=== PATIENT | female | born 1990 | race Caucasian/White ===

== ENCOUNTER → 2018-03-18 11:40 | Outpatient (CLI) | payer BC, SELFPAY ==
[2018-03-18 14:32] LABS: Thyroid Stim Hormone (TSH) 8.98 uIU/mL (0.358-3.74)
== END ==
PROVIDERS: Family Provider Family Medicine; PCP Family Medicine; Visit Provider Family Medicine
DX: E03.9 Hypothyroidism, unspecified (principal)
CPT/HCPCS: 36415; 84443

== ENCOUNTER → 2018-08-18 14:28 | Outpatient (CLI) | payer BC, SELFPAY ==
--- NOTE | 2018-08-18 14:33 | US_ITS ---
STUDY: THYROID ULTRASOUND REASON FOR EXAM: Female, 28 years old. Thyromegaly. TECHNIQUE: Ultrasound evaluation of the thyroid was performed with real-time and static cazares-scale imaging. COMPARISON: None. FINDINGS: RIGHT LOBE: The right lobe of the thyroid gland measures 6.0 x 2.3 x 2.0 cm. There is a heterogeneous echotexture. There is a 5 x 5 x 4 mm possible solid nodule in the upper pole. There is hypervascularity throughout the right lobe. LEFT LOBE: The left lobe of the thyroid gland measures 5.5 x 1.8 x 1.6 cm. There is a heterogeneous echotexture. There are no demonstrated solid, cystic or complex lesions. There is hypervascularity throughout the left lobe. ISTHMUS: The isthmus measures 6 mm. The regional lymph nodes are normal. US/Thyroid IMPRESSION: Enlarged, heterogeneous, hypervascular thyroid, suggesting thyroiditis. Possible 5 mm nodule in the upper pole of the right lobe. Electronically Signed: Hector Morfin MD at 18:58 EST , Service support ,
--- OUTSIDE RECORDS SUMMARY | 2018-10-04 11:50 | XMS RPT_ITS | Continuity of Care Document ---
:1990 Author Organization [facility] Address [address] [place] [address] Phone Care Team Providers Name Role Phone Veronique Mckinney DO Unavailable PHILOMENA Morse Unavailable Unavailable Unavailable Unavailable Problems Name Dates Details Adult hypothyroidism (E03.9, 244.9) Status: Active Anxiety and depression (F41.9, 300.00) Comments: sees [facility] on [address] Status: Active BMI 29.0-29.9,adult (Z68.29, V85.25) Status: Active Deliveries (Parity) Comments: 1. Status: Active Encounter for screening mammogram for breast cancer (Renamed from Encounter for screening mammogram for malignant neoplasm of breast) (Z12.31, V76.12) Status: Active Family history of breast cancer in female (Z80.3, V16.3) Status: Active Influenza vaccination declined (Renamed from Refused influenza vaccine) (Z28.21, V64.06) Status: Active Non-smoker (Z78.9, V49.89) Status: Active Panic attack (F41.0, 300.01) Status: Active Pregnancies () Comments: 1. Status: Active Thyromegaly (E01.0, 240.9) Status: Active Vaginal Delivery Comments: 2012 Status: Active Medications Name Dates Details ClonazePAM 0.5 MG Oral Tablet Active 1 prn (0.5 MG) Levothyroxine Sodium 50 MCG Oral Tablet Active 1 qd (50 MCG) Allergies and Adverse Reactions Name Dates Details No Known Allergies (Allergy) Onset: 12-Aug-2018 Status: Active Procedures Procedure Dates Details No Known Past Surgical History Completed 12-Aug-2018 Immunization Name Dates Details Hep A-Hep B, adult on: 2014 TB Skin Test, Intradermal on: 2014 Tdap (7 years and up) on: 2014 Family History Unknown Family Member Name Dates Details Brain Tumor Comments: Paternal Grandfather. Status: Active Breast Cancer Comments: Paternal Grandmother. Paternal Aunt. Status: Active Diabetes Mellitus Comments: Paternal Grandmother. Paternal Grandfather. Status: Active Hypertension Comments: Paternal Grandmother. Status: Active Hypothyroidism Comments: Mother. Status: Active Social History Name Dates Details Alcohol Use Comments: 1-2 q week Status: Active Caffeine Use Comments: occ Status: Active Exercise History: Does not exercise. Status: Active Living Situation: Lives with relatives. Status: Active No Drug Use Status: Active Non Smoker/No Tobacco Use Status: Active Pets/Animals: Dog. Status: Active Vital Signs Date Test Result Details :09 Temperature 97.7 f Comments: Method: Temporal Pulse 92 /min Comments: Pattern: Regular Respiration Rate 18 /min Comments: Pattern: Unlabored O2 SAT 99 % Comments: Room air BP Systolic 118 mm[Hg] Comments: Patient Position: Sitting; Cuff Location: Left Arm; Cuff Size: Large BP Diastolic 84 mm[Hg] Comments: Patient Position: Sitting; Cuff Location: Left Arm; Cuff Size: Large Weight 184.25 lb Height 66 in Body Mass Index Calculated 29.74 kg/m2 Body Surface Area Calculated 1.93 m2 Results Date Description Value Details No Result Information Available Plan of Care Name Dates Details Instructions Panic attack : Continue Current Prescription(s) Indication: Panic attack Planned Observations Anti-TPO Antibody (71753)Indication: Adult hypothyroidism On: 1-Rnm-506317:[id number] Request TSH (00914)Indication: Adult hypothyroidism On: 5-Fot-670740:53 Request T4, FREE (THYROXINE) (27401)Indication: Adult hypothyroidism On: 4-Mac-809878:53 Request T3, FREE (TRIDOTHYRONINE) (44390)Indication: Adult hypothyroidism On: 0-Irf-559574:53 Request Planned Procedures THYROID ULTRASOUND ([id number])By: Veronique Mckinney DO, DO, On: 12-Aug-2018 Intent Veronique SCREENING DIGITAL TOMOSYNTHESIS OF BREAST ([id number])By: Hank JAUREGUI, On: 12-Aug-2018 Intent Veronique Davila DO Instructions Name Dates Details Non-smoker : How to access health information online Indication: Non-smoker Non-smoker : How to access health information online - Detail Indication: Non-smoker Non-smoker : Patient Instructions Indication: Non-smoker Advance Directives Name Dates Details Immunization Registry [place] - Effective on 08/12/2018. Effective: 12-Aug-2018 Expiration date unspecified Encounters Office Visit On: 12-Aug-2018 9:58 Encounter Diagnosis: BMI 29.0-29.9,adult, Non-smoker, Adult hypothyroidism, Anxiety and depression, Panic attack, Family history of breast cancer in female, End: 12-Aug-2018 11:22 Encounter for screening mammogram for breast cancer (Renamed from Encounter for screening mammogram for malignant neoplasm of breast), Thyromegaly, Influenza vaccination declined (Renamed from Refused influenza vaccine) [facility] Payers Junior CALLE/Martin Carmen; a guarantor
--- OUTSIDE RECORDS SUMMARY | 2018-10-04 11:50 | XMS RPT_ITS ---
:1990 Author Organization [facility] Care Team Providers Name Role Phone Veronique Mckinney DO Attending Unavailable Veronique Mckinney DO Consulting Unavailable Veronique Mckinney Attending Unavailable Veronique Mckinney Referring Unavailable Veronique Mckinney Primary Care Unavailable Rufus Morillo Attending Unavailable Rufus Morillo Primary Care Unavailable HankVeronique Attending Unavailable Hank, Veronique Referring Unavailable Veronique Mckinney Primary Care Unavailable PROBLEMS PROBLEMS DATE TYPE CONDITION / CODE ATTENDING STATUS SOURCE 03/22/2018 Unknown E03.9 - Rufus Morillo Active [place] Hypothyroidism, Community unspecified / Hospital E03.9(ICD-10) Repository PROCEDURES PROCEDURES No Procedure Records FoundRESULTS RESULTS THYROID Observed: 08/18/2018 Status: F Source: SHYLA 2:33 PM [facility] REPOSITORY [facility] Imaging Services [address] [place] [address] Thyroid MR#: [id number] Acct: [id number] Name: ANNMARIE CUMMINGS Rep #: [id number] : 1990 F 28 From: Guillaume Morfin MD PCP: Veronique Mckinney DO Status: REG CLI Study: Thyroid Date of Exam: 08/18/18 Exam# [id number] Ordering Dr: Veronique Mckinney DO STUDY: THYROID ULTRASOUND REASON FOR EXAM: Female, 28 years old. Thyromegaly. TECHNIQUE: Ultrasound evaluation of the thyroid was performed with real-time and static cazares-scale imaging. COMPARISON: None. FINDINGS: RIGHT LOBE: The right lobe of the thyroid gland measures 6.0 x 2.3 x 2.0 cm. There is a heterogeneous echotexture. There is a 5 x 5 x 4 mm possible solid nodule in the upper pole. There is hypervascularity throughout the right lobe. LEFT LOBE: The left lobe of the thyroid gland measures 5.5 x 1.8 x 1.6 cm. There is a heterogeneous echotexture. There are no demonstrated solid, cystic or complex lesions. There is hypervascularity throughout the left lobe. ISTHMUS: The isthmus measures 6 mm. The regional lymph nodes are normal. US/Thyroid IMPRESSION: Enlarged, heterogeneous, hypervascular thyroid, suggesting thyroiditis. Possible 5 mm nodule in the upper pole of the right lobe. Electronically Signed: Hector Morfin MD at 18:58 EST , Service support , CC: Veronique Mckinney DO Driver Lifter [employer] Sanitation Truck: Signed THYROID STIM HORMONE Collected: 03/18/2018 Status: F Source: SHYLA (TSH) 11:42 AM [facility] REPOSITORY TYPE CODE TESTS RESULT OUT OF RANGE REFERENCE UNITS LAB L501.9520 0.358-3.74 uIU/mL High TSH 8.98 Performed By: #### L501.9520 #### [facility] Esther Torres. [place], [place], [id number] ALLERGIES ALLERGIES DATE TYPE / CODE NAME / CODE REACTION SEVERITY SOURCE 10/25/2016 Drug No Known Unknown Shyla [facility] Allergy/4160 Allergies/F00 Hospital 57275(SNOMED [id number](RXNOR Repository CT) M) ENCOUNTERS ENCOUNTERS ADMIT/DISCHARGE ACCOUNT ADMITTING ENCOUNTER LOCATION SOURCE NUMBER CLASS 09/14/2018 [id number] Ambulatory [place] 7 [facility] ing:AL Repository 09/07/2018 [id number] Ambulatory Building:[facility] [place] Practices Repository 08/18/2018 [id number] Ambulatory [place] 9 [facility] ing:[place] Repository 03/18/2018 [id number] Ambulatory [place] 7 [facility] ing:MFPLAB Repository PAYERS PAYERS ENCOUNTER GUARANTOR PAYER SUBSCRIBER SOURCE 09/14/2018 ANNMARIE Yin Primary ANNMARIE Yin [place] [id number] N Insurance:ANTHEMPolic HYATTDOB: [facility] [place]: [id number] [id number] Repository [address]Pbo: 330) Date:1484-26-61[phone] () [id number], [place] [address]BJ: 09/14/2018 Secondary NOT GIVENUNK [place] Insurance:SELF PAY [facility] Number: Effective Repository Date:2018-08-29 09/07/2018 Annmarie [facility]in [facility] HyattDOB: Insurance:Tequesta HyattDOB: Repository [id number] /[facility] Number: [id number] [facility] [id number] [address] [place], [place] Date:7133-47-71[place]gn[place]rens, [place] [address]Iyv: 330) Name:[address] [address]Hdg: [id number] [place] [address] [phone] () (HP)Tel: [phone]: [phone] 08/18/2018 ANNMARIE Yin Primary ANNMARIE N [place] [id number] N Insurance:ANTHEMPolic HYATTDOB: Community ELYRIA y Number: [id number] [id number] Repository [address]Czv: (330) Date:6933-43-05YL [phone] () [id number], [place] [address]YY: 08/18/2018 Secondary NOT GIVENUNK [place] Insurance:SELF PAY [facility] Number: Effective Repository Date:2018-08-12 03/18/2018 ANNMARIE N Primary ANNMARIE N [place] [id number] N Insurance:ANTHEMPolic HYATTDOB: [facility] y Number: [id number] [id number] Repository [address]Jxk: (330) Date:7095-74-88EF [phone] () [id number], [place] [address]OB: 03/18/2018 Secondary NOT GIVENUNK [place] Insurance:SELF PAY [facility] Number: Effective Repository Date:2018-03-18
== END ==
PROVIDERS: Family Provider Internal Medicine; PCP Internal Medicine; Referring Provider Internal Medicine; Visit Provider Internal Medicine
DX: E01.0 Iodine-deficiency related diffuse (endemic) goiter (principal)
CPT/HCPCS: 76536

== ENCOUNTER → 2018-10-06 15:17 | Outpatient (CLI) | payer BC, SELFPAY ==
--- NOTE | 2018-10-06 15:25 | BI_ITS ---
MAMMOGRAPHY - BILATERAL SCREENING REASON FOR EXAM: Female, 28 years old. Routine annual screening examination. PERTINENT HISTORY: Aunt with breast cancer. Grandmother with breast cancer. TECHNIQUE: Digital bilateral breast xu (3D mammographic acquisition) in the CC and MLO projections. 2-D mediolateral oblique (MLO) and craniocaudad (CC) views of both breasts were obtained. CAD: Full Field Digital Mammography with Computer Added Detection was performed. COMPARISON: None. Baseline examination. FINDINGS: Breast Composition: The breasts are extremely dense, which lowers the sensitivity of mammography. There are no dominant masses or suspicious calcifications. Benign-appearing bilateral axillary lymph nodes. No other significant abnormalities are identified. BI/SCREENING MAMM (CAD), BILAT IMPRESSION: Negative screening mammogram. Yearly followup mammogram recommended. (A) ASSESSMENT CATEGORY: BIRADS Category 2: Benign. A letter regarding these results will be sent to the patient by the facility within 30 days. Approximately 10% of breast cancers are not detected by mammography. A normal mammogram should not delay biopsy of a clinically suspicious abnormality. [id number] Electronically Signed: Dillan Raya MD at 9:10 EST , Service support ,
== END ==
PROVIDERS: Family Provider Internal Medicine; PCP Internal Medicine; Referring Provider Internal Medicine; Visit Provider Internal Medicine
DX: Z12.31 Encounter for screening mammogram for malignant neoplasm of breast (principal)
CPT/HCPCS: 77063; 77067

== ENCOUNTER → 2018-12-17 10:51 | Outpatient (CLI) | payer BC, SELFPAY ==
[2018-12-17 12:20] LABS: Cholesterol 108 mg/dL (200); Free T3 2.2 pg/mL (2.18-3.98); High Density Lipoprotein 39 mg/dL; T4 Free Direct 0.89 ng/dL (0.76-1.46); Thyroid Stim Hormone (TSH) 3.93 uIU/mL (0.358-3.74); Triglycerides 71 mg/dL; Very Low Density Lipoprotein 14 mg/dL (5-40)
[2018-12-18 10:58] LABS: Thyroid Peroxidase AB 79 IU/mL (0-34)
== END ==
PROVIDERS: Family Provider Internal Medicine; PCP Internal Medicine; Referring Provider Internal Medicine; Visit Provider Internal Medicine
DX: E03.9 Hypothyroidism, unspecified (principal); E06.3 Autoimmune thyroiditis; Z13.220 Encounter for screening for lipoid disorders
CPT/HCPCS: 36415; 80061; 84439; 84443; 84481; 86376

== ENCOUNTER → 2019-03-28 11:19 | Outpatient (CLI) | payer BC, SELFPAY ==
[2019-03-28 13:04] LABS: Vitamin D,25 Hydroxy 31.6 ng/mL (29.95-100.01)
[2019-03-28 13:17] LABS: AST(SGOT) 9 U/L (15-37); Alanine Aminotransfer ALT/SGPT 16 U/L (13-56); Albumin, Serum 3.6 g/dL (3.2-5.0); Alkaline Phosphatase 47 U/L (45-117); Anion Gap 8 (5-15); BUN 11 mg/dL (7-18); BUN/Creat Ratio 11.3 RATIO (10-20); Calcium,Total 9.2 mg/dL (8.5-10.1); Chloride 108 mmol/L (98-107); Creatinine, Serum 0.97 mg/dL (0.55-1.02); EST Glomerular Filtration Rate 71 mL/min (>60); Est Glom Filt Rate - Afr Amer 86 mL/min (>60); Globulin 3.5 g/dL (2.2-4.2); Glucose 120 mg/dL (74-106); Potassium 4.1 mmol/L (3.5-5.1); Protein, Total 7.1 g/dL (6.4-8.2); Sodium Level 140 mmol/L (136-145); T4 Free Direct 1.14 ng/dL (0.76-1.46); Thyroid Stim Hormone (TSH) 1.83 uIU/mL (0.358-3.74)
[2019-03-29 20:07] LABS: Endomysial Antibody IgA Negative (Negative)
[2019-03-30 12:49] LABS: Deamidated Gliadin IgA 7 units (0-19); Deamidated Gliadin IgG 2 units (0-19); Immunoglobulin A 201 mg/dL (87-352); t-Transglutaminase IgA <2 U/mL (0-3)
== END ==
PROVIDERS: Family Provider Internal Medicine; PCP Internal Medicine
DX: E03.8 Other specified hypothyroidism (principal); E55.9 Vitamin D deficiency, unspecified; K90.9 Intestinal malabsorption, unspecified
CPT/HCPCS: 36415; 80053; 82306; 82784; 83516; 84439; 84443; 86255

== ENCOUNTER → 2019-06-09 11:20 | Outpatient (CLI) | payer BC, SELFPAY ==
[2019-06-09 13:20] LABS: Vitamin B12 853 pg/mL (211-911)
[2019-06-09 13:46] LABS: Ferritin 57 ng/mL (8-252); Iron 66 ug/dL (50-170); Thyroid Stim Hormone (TSH) 6.81 uIU/mL (0.358-3.74)
[2019-06-13 11:12] LABS: Testosterone, Free 0.52 ng/dL (0.10-0.85); Testosterone, Total 26 ng/dL (8-48)
[2019-06-13 12:36] LABS: Testosterone, % Free 2.01 % (0.50-2.80)
== END ==
PROVIDERS: Family Provider Internal Medicine; PCP Internal Medicine
DX: L65.9 Nonscarring hair loss, unspecified (principal); D50.9 Iron deficiency anemia, unspecified; D51.3 Other dietary vitamin B12 deficiency anemia; E04.1 Nontoxic single thyroid nodule; E66.09 Other obesity due to excess calories
CPT/HCPCS: 36415; 82607; 82728; 83525; 83540; 84402; 84403; 84443

== ENCOUNTER → 2019-09-20 16:34 | Outpatient (CLI) | payer BC, SELFPAY ==
[2019-09-20 18:03] LABS: Vitamin D,25 Hydroxy 30.4 ng/mL (29.95-100.01)
[2019-09-20 18:08] LABS: ALB/GLOB Ratio 0.9 RATIO (0.9-2.4); AST(SGOT) 11 U/L (15-37); Alanine Aminotransfer ALT/SGPT 17 U/L (13-56); Albumin, Serum 3.5 g/dL (3.2-5.0); Alkaline Phosphatase 39 U/L (45-117); Anion Gap 5 (5-15); BUN 13 mg/dL (7-18); BUN/Creat Ratio 13.3 RATIO (10-20); Calcium,Total 9.5 mg/dL (8.5-10.1); Chloride 109 mmol/L (98-107); Creatinine, Serum 0.98 mg/dL (0.55-1.02); EST Glomerular Filtration Rate 70 mL/min (>60); Est Glom Filt Rate - Afr Amer 85 mL/min (>60); Globulin 3.8 g/dL (2.2-4.2); Glucose 82 mg/dL (74-106); Potassium 3.9 mmol/L (3.5-5.1); Protein, Total 7.3 g/dL (6.4-8.2); Sodium Level 140 mmol/L (136-145); T4 Free Direct 1.05 ng/dL (0.76-1.46); Thyroid Stim Hormone (TSH) 4.91 uIU/mL (0.358-3.74)
== END ==
PROVIDERS: Family Provider Internal Medicine; PCP Internal Medicine; Referring Provider Internal Medicine Endocrinology, Diabetes & Metabolism; Visit Provider Internal Medicine Endocrinology, Diabetes & Metabolism
DX: E04.1 Nontoxic single thyroid nodule (principal); E56.9 Vitamin deficiency, unspecified; E03.8 Other specified hypothyroidism
CPT/HCPCS: 36415; 80053; 82306; 84439; 84443

== ENCOUNTER → 2020-01-08 10:53 | Outpatient (CLI) | payer BC, MEDICAID, SELFPAY ==
--- NOTE | 2020-01-08 10:55 | US_ITS ---
STUDY: THYROID ULTRASOUND REASON FOR EXAM: Female, 29 years old. THYROID NODULES TECHNIQUE: Ultrasound evaluation of the thyroid was performed with real-time and static cazares-scale imaging. COMPARISON: None. FINDINGS: RIGHT LOBE: The right lobe of the thyroid gland is enlarged and measures 5.9 cm x 2.1 cm x 2.1 cm. There is a heterogeneous echotexture. There are no demonstrated solid, cystic or complex lesions. LEFT LOBE: The left lobe of the thyroid gland is enlarged and measures 5.2 cm x 1.7 cm x 1.6 cm. There is a heterogeneous echotexture. There are no demonstrated solid, cystic or complex lesions. ISTHMUS: The isthmus measures 4.0 mm. The regional lymph nodes are normal. US/Thyroid IMPRESSION: Enlarged and heterogeneous appearance of the thyroid gland. No discrete nodule is seen. Electronically Signed: Dillan Raya, at 15:21 EDT , Service support ,
== END ==
PROVIDERS: PCP Internal Medicine; Referring Provider Internal Medicine; Visit Provider Internal Medicine
DX: E04.1 Nontoxic single thyroid nodule (principal); R00.2 Palpitations
CPT/HCPCS: 76536; 93225; 93226

== ENCOUNTER → 2020-02-01 09:05 | Outpatient (CLI) | payer BC, MEDICAID, SELFPAY ==
--- NOTE | 2020-02-01 09:11 | US_ITS ---
STUDY: FIRST TRIMESTER OBSTETRICAL ULTRASOUND REASON FOR EXAM: Female, 30 years old DATING LMP: December 16, 2019 TECHNIQUE: Transvaginal TECHNICAL QUALITY: Adequate. PRIOR ULTRASOUND: None. FINDINGS: There is questionable visualization of a single gestational sac in a normal intrauterine position. The mean sac diameter (MSD) measures 3 mm, indicating an estimated gestational age (EGA) of 4 weeks, 4 days. The gestational sac shape is within normal limits. There is no demonstrated yolk sac. The placenta is non-visualized. There is no demonstrated embryo ( pole). The estimated gestation age (EGA) by LMP is 6 weeks, 4 days. The estimated date of delivery (EMIR) by LMP is September 22, 2020. The estimated gestation age (EGA) by US is 4 weeks, 4 days. The estimated date of delivery (EMIR) by US is October 06, 2020. The uterus measures 9.1 cm x 5.9 cm x 4.4 cm. Small amount of fluid is seen within the endometrial canal. There is no demonstrated uterine fibroid. The cervix is closed. The right ovary measures 2.9 cm x 1.9 cm x 1.4 cm. There is no right ovarian cyst. There is no visualized right adnexal mass or complex lesion. The left ovary measures 2.7 cm x 1.6 cm x 2.1 cm. There is no left ovarian cyst. There is no visualized left adnexal mass or complex lesion. There is no fluid in the cul de sac. US/Transvaginal w/Preg US IMPRESSION: Possible 3 mm intrauterine gestational sac. Follow-up is recommended. Fluid is seen in the endometrial cavity. Electronically Signed: Dillan Raya, at 13:11 EDT , Service support ,
== END ==
PROVIDERS: PCP Internal Medicine; Referring Provider Specialist
DX: O36.80X0 Pregnancy with inconclusive fetal viability, not applicable or unspecified (principal); Z3A.00 Weeks of gestation of pregnancy not specified
CPT/HCPCS: 76817

== ENCOUNTER → 2020-02-16 18:23 | Outpatient (CLI) | payer BC, MEDICAID, SELFPAY ==
--- NOTE | 2020-02-16 18:29 | US_ITS ---
STUDY: FIRST TRIMESTER OBSTETRICAL ULTRASOUND REASON FOR EXAM: Female, 30 years old HORMONE LEVELS NOT DOUBLING LMP: 01/05/2020 TECHNIQUE: Transvaginal TECHNICAL QUALITY: Adequate. PRIOR ULTRASOUND: 02/01/2020. FINDINGS: There is visualization of a single gestational sac in a normal intrauterine position. The mean sac diameter (MSD) measures 1.1 cm, indicating an estimated gestational age (EGA) of 5 weeks, 6 days. The gestational sac shape is within normal limits. There is a small subchorionic hemorrhage. There is a visualized yolk sac. The yolk sac measures 3 mm. The placenta is non-visualized. There is visualization of an embryo with no cardiac activity, consistent with intrauterine demise. The crown-rump length (CRL) measures 0.3 cm, indicating an estimated gestational age (EGA) of 6 weeks, 0 days. The estimated gestation age (EGA) by LMP is 6 weeks, 0 days. The estimated date of delivery (EMIR) by LMP is 10/11/2020 The estimated gestation age (EGA) by US is 6 weeks, 0 days. The estimated date of delivery (EMIR) by US is 10/11/2020 . The uterus measures 9.5 x 6.1 x 4.5 cm. There is no demonstrated uterine fibroid. The cervix is closed. The right ovary is not visualized. The left ovary measures 2.4 x 2.2 x 1.3 cm. There is a 1.1 cm cyst. There is no visualized left adnexal mass or complex lesion. There is no fluid in the cul de sac. US/Init OB < 14Wks US IMPRESSION: There is a pole with no cardiac activity. Findings consistent with intrauterine demise. Based on crown-rump length, EGA would be 6 weeks 0 days. There is a subchorionic bleed. Electronically Signed: Jw Patten MD at 19:15 EDT , Service support ,
== END ==
PROVIDERS: PCP Internal Medicine
DX: O20.0 Threatened abortion (principal); Z3A.00 Weeks of gestation of pregnancy not specified
CPT/HCPCS: 76801

== ENCOUNTER 2020-07-31 15:30 | Outpatient (RCR) | payer BC, MEDICAID, SELFPAY | END 2020-08-05 23:59 | LOC: DC 15:30 | PROVIDERS: PCP Internal Medicine; Visit Provider Obstetrics & Gynecology | DX: Z71.3 Dietary counseling and surveillance (principal); O24.410 Gestational diabetes mellitus in pregnancy, diet controlled; Z3A.00 Weeks of gestation of pregnancy not specified | CPT/HCPCS: 97802; 97803 ==

== ENCOUNTER 2020-08-15 10:08 | Outpatient (RCR) | payer BC, MEDICAID, SELFPAY | END 2020-09-05 23:59 | LOC: DC 10:08 | PROVIDERS: PCP Internal Medicine; Visit Provider Obstetrics & Gynecology | DX: Z71.3 Dietary counseling and surveillance (principal); O24.410 Gestational diabetes mellitus in pregnancy, diet controlled; Z3A.00 Weeks of gestation of pregnancy not specified ==

== ENCOUNTER 2020-12-12 02:27 | Outpatient (CLI) | payer BC, MEDICAID, SELFPAY ==
[2020-12-12 02:32] VITALS: BMI 38.5
[2020-12-12 02:48] VITALS: BP 119/78; PULSE 83
[2020-12-12 02:56] VITALS: TEMP 36.6
[2020-12-12 03:03] VITALS: BP 117/76; PULSE 90
[2020-12-12 03:19] VITALS: BP 124/79; PULSE 94
--- NOTE | 2020-12-16 07:30 | OB.TRI.NOTE ---
- Problem List (1) 35 weeks gestation of Status: Acute (2) Twin Status: Acute (3) Swelling of lower extremity during Status: Acute History of Present Illness Date of Service: 12/12/20 Was patient seen by the physician?: No Reason For Visit: R/O LABOR Final EMIR: 01/16/21 Gestational age: 35 Weeks and 4 Days History of Present Illness: Pt noted swelling in LE so she checked her BP's at home and called into after hours line. She reports BP's mild-severe range. No LIRA, vision changes, upper abd pain, nausea, vomiting, malaise, ctx, vb, lof. Good FM. She noted her underwear liner was a little wet tonight but no leaking or gushes of fluid. Allergies No Known Allergies Allergy (Verified 12/12/20 02:33) Physical Exam Vitals: Vital Signs Temp Pulse BP 97.8 F 94 124/79 H 12/12/20 02:56 12/12/20 03:19 12/12/20 03:19 NST - FHR Rate Baby A Baseline: 130 Variability:: Moderate Accelerations:: 15 x 15 Decelerations:: None NST Reactive:: Yes Uterine Activity:: no regular ctx - FHR Rate Baby B Baseline: 130 Variability:: Moderate Accelerations:: 15 x 15 Decelerations:: None NST Reactive:: Yes Uterine Activity:: no regular ctx Impression/Plan BP's here all normal No pre e symptoms Instructed to bring in BP cuff to next appointment To follow up in office in AM
== END 2020-12-12 03:40 | disposition home or self-care (01) ==
LOC: WPOUT 02:31 → WP 02:32
PROVIDERS: PCP Internal Medicine; Visit Provider Obstetrics & Gynecology
DX: O47.03 False labor before 37 completed weeks of gestation, third trimester (principal); O26.893 Other specified pregnancy related conditions, third trimester; M79.89 Other specified soft tissue disorders; Z3A.35 35 weeks gestation of pregnancy
CPT/HCPCS: 59025; 59050; 99218; G0378

== ENCOUNTER 2020-12-20 05:10 | Inpatient (IN) | payer BC, MEDICAID, SELFPAY ==
--- NOTE | 2020-12-18 08:03 | HP.PCM_ITS ---
History and Physical Date of Admission: 12/20/20 Nenita Guerrero Physician Specialty: REGIONAL INTERMODAL TRUCK DRIVER H&P ? Signed Encounter Date: 12/10/2020 Expand AllCollapse All Expand All by Default Hide copied text Jania for details Pre-Op History and Physical ? HPI: The patient is a 30 year old female presenting for pre-operative visit. She is scheduled for , for twins- low lying placenta at 36+weeks gestation per [facility]. on 12/20/20. Procedure discussed along with risks, benefits and complications. Other alternatives discussed for management. Consent form signed? Yes. ? ? PAST MEDICAL HISTORY PAST MEDICAL HISTORY Diagnosis Date ? Anemia ? ? Diet controlled gestational diabetes mellitus (GDM) in first trimester 06/11/2020 ? History of miscarriage ? ? Hypothyroid ? ? Hashimotos ? Mental disorder ? ? Vitamin D deficiency ? ? ? PAST SURGICAL HISTORY PAST SURGICAL HISTORY Procedure Laterality Date ? ORAL SURGERY PROCEDURE ? ? ? [place] ? ? ? CURRENT MEDICATIONS Current Outpatient Medications Medication Sig Dispense Refill ? famotidine (PEPCID) 20 mg tablet TAKE 1 TABLET BY MOUTH TWICE A DAY 180 tablet 2 ? levothyroxine (SYNTHROID) 100 mcg tablet TAKE 1 TABLET BY MOUTH EVERY DAY IN THE MORNING ? ? ? blood sugar diagnostic test strip 1 Strip four times daily. Use as instructed 120 Strip 9 ? Lancets lancets 1 Each four times daily. Use as instructed 120 Each 9 ? Urine Glucose-Ketones Test (KETO-DIASTIX) strp 1 Strip four times daily. 120 Strip 9 ? Xeemfaqn-Ke-Vsd-Fe-FA ( VITAMIN) tab Take 1 tablet by mouth. ? ? ? ergocalciferol 50,000 unit capsule (VITAMIN D2, DRISDOL) Take 50,000 Units by mouth one time a week. ? ? ? No current facility-administered medications for this visit. ? ? ALLERGIES: Patient has no known allergies. ? PERSONAL HISTORY: SOCIAL HISTORY Social History ? Tobacco Use ? Smoking status: Never Smoker ? Smokeless tobacco: Never Used Vaping Use ? Vaping Use: Never used Substance Use Topics ? Alcohol use: Not Currently ? ? Comment: Occasionally ? Drug use: Never ? FAMILY HISTORY: FAMILY HISTORY FAMILY HISTORY Problem Relation Age of Onset ? No Known Problems Mother ? ? No Known Problems Father ? ? other (MVA) Maternal Grandmother ? ? Diabetes Maternal Grandfather ? ? Breast Cancer Paternal Grandmother ? ? and Spinal cancer ? Heart Attack Paternal Grandmother ? ? Stroke Paternal Grandmother ? ? Diabetes Paternal Grandmother ? ? Alzheimer's Disease Paternal Grandfather ? ? Diabetes Paternal Grandfather ? ? other (Brain cancer) Paternal Grandfather ? ? ? REVIEW OF SYMPTOMS: negative except as noted above PHYSICAL EXAMINATION: ? VITALS: Blood pressure 138/74, weight 228 lb (103.4 kg), last menstrual period 04/02/2020. ? GENERAL: The patient is well nourished, well hydrated in no acute distress. , The patient is oriented to time, place, and person. NECK: Supple. No lynphadenopathy, normal thyroid, no thyromegaly. GENITALIA: Normal external genitalia, Urethral meatus normal and perineum WNL WET PREP: Not indicated ? IMPRESSION: 30yo @ 34.5 weeks- Di/Di TWINS with Low lying placenta ? PLAN: Primary cs at 36+ weeks per M ? Pt has been counseled on risks/benefits and alternatives of surgery including but not limited to anesthesia, bleeding, infection, injury to pelvic structures including bowel, bladder, ureters and vessels. Pt wishes to proceed with surgery at this time. Blood transfusion and risks of hysterectomy reviewed with patient. Pt verbalized understanding. ? covid testing ordered. ? I have reviewed and updated past medical and surgical history, medications and allergies Nenita Guerrero MD Office Visit on 12/10/2020 Office Visit on 12/10/2020 Note shared with patient
[2020-12-20] VITALS (20 sets, daily range): BP systolic 110–135; BP diastolic 58–85; PULSE 70–118; RESP 14–18; TEMP 36.1–36.7; O2SAT 95–100; BMI 38.9
[2020-12-20] MEDS: Lactated Ringers 1,000 ML 999 ML IV (05:30)
[2020-12-20 05:38] LABS: Absolute Lymphocyte Count 2.57 X10^3/uL (0.83-4.51); Absolute Neutrophil Count 7.8 X10^3/uL (2.0-7.7); Basophil% 0.8 % (0-1); Eosinophil# 0.61 X10^3/uL; Eosinophils% 5.1 % (0-5); Hematocrit 33.4 % (37-47); Hemoglobin 10.6 g/dL (12.0-15.0); Lymphocyte # 2.57 X10^3/ul (0.83-4.51); Lymphocyte % 21.5 % (19-41); Mean Corp Hgb Conc 31.7 g/dL (32-36); Mean Platelet Vol. 13.2 fl (6.2-12.0); Monocyte# 0.85 X10^3/uL; Monocyte% 7.1 % (0-10); NRBC Flagged by Analyzer 0 % (0-5); Neutrophil # 7.76 X10^3/uL (2.7-7.7); Neutrophil % 64.7 % (47-70); Platelet Count 195 K/mm3 (150-450); Red Blood Count 3.93 M/mm3 (4.2-5.4)
[2020-12-20] MEDS: Acetaminophen 500 MG Tablet 1000 MG PO ×4 (05:57→23:22)
[2020-12-20 06:21] LABS: Bedside Glucose 95 mg/dL (70-110)
[2020-12-20] MEDS: Lactated Ringers 1,000 ML 150 ML IV (06:21)
[2020-12-20] MEDS: Sodium Citrate/Citric Acid 30 ML UDC PO (07:14)
[2020-12-20] MEDS: Cefazolin 2 GM in 0.9% Normal Saline 100 ML IV (07:17)
--- NOTE | 2020-12-20 08:03 | PCM.OPRPT ---
Delivery Classification: Scheduled Final EMIR: 01/16/21 Final EMIR Source: US <20 weeks Gestational age: 36 Weeks and 1 Days electronics parts sales representative: Janet Mojica Type of Anesthesia:: Spinal Implants Used: none Date of Procedure: 12/20/20 - start time 738 end time 809 Pre-Operative Diagnosis: dichorionic/diamniotic Twin gestation, 36.1 weeks, posterior marginal previa Post-Operative Diagnosis: same, live male infants Indications: SURGERY PERFORMED: primary LOW TRANSVERSE CS Indications for : Multiple Gestation, - - posterior marginal previa Description of Procedure: After informed consent was obtained the patient was taken the operating room she was given spinal anesthesia. She was then placed in the supine position. She was prepped and draped in the normal sterile fashion. Anesthesia was found to be adequate. At this time a Pfannenstiel skin incision was made with a knife was carried down to the underlying layer of the fascia. The fascial incision was then extended laterally using curved Russell scissor. Attention was then turned to the superior aspect of the fascial edge was grasped with 2 straight [place] clamps tented up and the rectus muscle dissected off sharply using curved Russell scissor. Attention was then turned to the inferior aspect where again Zaid clamps were placed in the rectus muscles were tented up and the fascia was dissected off sharply using the curved Russell scissor. Rectus muscles were then in the midline bluntly and peritoneum was entered bluntly. Gentle opposing traction was placed. At this time the vesicouterine peritoneum was identified. Scalpel was used to make a uterine incision in a low transverse fashion. The uterus was then entered bluntly gentle opposing traction was placed to extend this incision. Membranes were ruptured clear. 's A's head was brought to the uterine incision was delivered atraumatically. Delayed cord clamping performed- mouth and nose suctioned. Cord was clamped and cut was handed to the waiting nursery team. TWIN B found in vertex position- head stablized and membranes ruptured clear- delivered without diffculty and delayed cord clamping performed. Mouth and nose suctioned- cord clamed and cut and twin B handed to nursery team. The Placenta was removed from the uterus. The uterus was then removed from the abdominal cavity. The uterus was cleared of all clots and debris using a lap. At this time the uterine incision was reapproximated using #1 Vicryl in a running locked fashion. followed by a second imbricating later with 1-0 vicryl. Hemostasis was appreciated. Posterior cul-de-sac was then cleared of all clots and debris. Tubes and ovaries were normal. Uterus was placed back in the abdominal cavity. Gutters were cleared of all clots and debris. Uterine incision was reevaluated and noted to be of excellent hemostasis. At this time the peritoneum and muscle were grasped with Kellys reapproximated using #2 Vicryl suture in a running fashion. Farhana placed over rectus - next the Fascia was then reapproximated using #1 Vicryl in a running fashion. Subcu layer was reapproximated with #2 0 plain gut suture in an interrupted fashion. Farhana placed. Subcu layer was closed using 4-0 Monocryl in a subcu fashion. Dry sterile dressing was applied. Instrument lap needle count correct ?2. Anticipated normal postoperative course. Amniotic Membrane Rupture Type: Artificial Amniotic Fluid Description: Clear, - Placenta Disposition: Routine to Lab Specimen(s) sent to pathology: placentas Drain: Robertson to straight drain Fluids Replaced: 400 Cord Entanglement: None Nuchal Cord Compression: Without compression Cord Vessel Description: 3 Vessels Esitmated Blood Loss (ml): 600 Infant Gender: Male (1 minute): 8 - delivery time 0742 (5 minute): 9 Delayed cord clamping: Yes Antibiotic Given: Ancef 2 grams IV x1 Pt instructed on risks of surgery: Bleeding, Anesthesia Risks, Infection, Injury to surrounding structure(s) including bowel and bladder Complications: None - Admit VTE Documentation VTE Present on Admission: Yes VTE Mechan Device Prophylaxis: SCD's VTE Pharm Prophylaxis ordered?: Yes Baby B - Information Amniotic Membrane Rupture Type: Artificial - clear fluid Presentation: Vertex - Operative Information Cord Entanglement: None Cord Vessel Description: 3 Vessels Infant B gender: Male (1 minute): 8 - delivery time 0743 (5 minute): 9
[2020-12-20] MEDS: Oxytocin 30 units/NS 500 ml 30 UNITS/500 ML IV.SOLN 167 UNITS IV (08:44)
[2020-12-20] MEDS: Ketorolac 30 MG/ML Syringe IV ×3 (08:50→20:51)
[2020-12-20] MEDS: Lactated Ringers 1,000 ML 100 ML IV (11:52)
[2020-12-20 12:10] LABS: Bedside Glucose 98 mg/dL (70-110)
[2020-12-20] MEDS: 0.9% Saline Lock 10 ML Syringe IV ×2 (14:50→20:52)
[2020-12-20] MEDS: Ferrous Sulfate 325 MG Tablet PO (17:35)
[2020-12-20] MEDS: Enoxaparin 40 MG/0.4 ML Syringe SC (20:51)
[2020-12-21] MEDS: 0.9% Saline Lock 10 ML Syringe IV (03:02)
[2020-12-21] MEDS: Ketorolac 30 MG/ML Syringe IV (03:02)
[2020-12-21 03:06] VITALS: BP 111/68; PULSE 92; RESP 18; TEMP 36.4
--- NOTE | 2020-12-21 03:47 | NURSING ---
report received from grace. this RN to assume care of pt at this time.
[2020-12-21 04:31] LABS: Bedside Glucose 117 mg/dL (70-110)
[2020-12-21 04:33] LABS: Hematocrit 28.1 % (37-47); Hemoglobin 8.9 g/dL (12.0-15.0); Mean Corp Hgb Conc 31.7 g/dL (32-36); Mean Corpuscular Hgb 27.1 pg (27.0-32.0); Mean Corpuscular Volume 85.4 fL (81-99); Mean Platelet Vol. 12.6 fl (6.2-12.0); Platelet Count 145 K/mm3 (150-450); RBC Distribution Width CV 13.2 % (11.6-14.6); RBC Distribution Width SD 40.9 fl (35.1-43.9); Red Blood Count 3.29 M/mm3 (4.2-5.4)
[2020-12-21] MEDS: Acetaminophen 500 MG Tablet 1000 MG PO ×3 (06:29→18:19)
[2020-12-21] MEDS: Levothyroxine 100 MCG Tablet PO (06:29)
[2020-12-21] MEDS: Senna/Docusate Sodium 1 Tablet PO (08:40)
[2020-12-21] MEDS: Ibuprofen 600 MG Tablet PO ×3 (08:40→22:02)
[2020-12-21 08:45] VITALS: BP 104/58; PULSE 103; RESP 14; TEMP 36.2
--- NOTE | 2020-12-21 09:44 | PCM.PN.OB ---
Subjective: Pain well controlled. Average lochia. Positive flatus, no bowel movement. Tolerating regular diet. Urinating without difficulty. Pain on pumping breastmilk for neonates that are in the special care nursery. - Physical Exam Vitals/I&O's: Vital Signs Temp Pulse Resp BP Pulse Ox 97.2 F L 103 H 14 104/58 L 98 12/21/20 08:45 12/21/20 08:45 12/21/20 08:45 12/21/20 08:45 12/20/20 20:45 Oxygen Delivery Method Room Air Weight: 106.1 kg Body Mass Index (BMI) 38.9 Intake and Output for Last 24 Hours 12/19/20 12/20/20 12/21/20 23:59 23:59 23:59 Intake Total 3070.98 / 3070.98 0 / 0 Output Total 800 / 800 1800 / 1800 Balance 2270.98 / 2270.98 -1800 / -1800 General: Alert, Cooperative, No apparent distress Abdomen: Soft, Distended - Mildly, softly, Tender - Appropriately Extremities: Edema - 1+ Skin: Incision - Bandage is clean dry and intact Laboratory Results 12/20/20 10:14: POC Glucose 98 12/21/20 04:19: POC Glucose 117 H 12/21/20 04:20: WBC 14.0 H, RBC 3.29 L, Hgb 8.9 L, Hct 28.1 L, MCV 85.4, MCH 27.1, MCHC 31.7 L, RDW Std Deviation 40.9, RDW Coeff of Terry 13.2, Plt Count 145 L, MPV 12.6 H Current Medications Acetaminophen (Acetaminophen 500 Mg Tablet) 1,000 mg PO Q6 [facility] Last Admin: 12/21/20 06:29 Dose: 1,000 mg Documented by: Bisacodyl (Bisacodyl 10 Mg Suppository) 10 mg RC UD PRN PRN Reason: If no BM Dextrose (Dextrose 50%-Water 25 Gm/50 Ml Disp.Syrin) 0 gm IV X1 PRN; Protocol PRN Reason: Hypoglycemia Enoxaparin Sodium (Enoxaparin 40 Mg/0.4 Ml Syringe) 40 mg SC 2000 [facility] Last Admin: 12/20/20 20:51 Dose: 40 mg Documented by: Ferrous Sulfate (Ferrous Sulfate 325 Mg Tablet) 325 mg PO 1200,1700 [facility] Last Admin: 12/20/20 17:35 Dose: 325 mg Documented by: Glucagon (Glucagon 1 Mg/Ml Syringe) 1 mg IM .X1 PRN PRN Reason: Hypoglycemia Hydrocortisone (Hydrocortisone 2.5% Crm) 1 applic TOPICAL TID PRN PRN; Protocol PRN Reason: Discomfort Lactated Ringer's () 1,000 mls @ 100 mls/hr IV .Q10H [facility] Last Infusion: 12/21/20 03:51 Dose: Infused Documented by: Ibuprofen (Ibuprofen 600 Mg Tablet) 600 mg PO Q6H [facility] Last Admin: 12/21/20 08:40 Dose: 600 mg Documented by: Levothyroxine Sodium (Levothyroxine 100 Mcg Tablet) 100 mcg PO DAILY@0600 [facility] Last Admin: 12/21/20 06:29 Dose: 100 mcg Documented by: Methylergonovine Maleate (Methylergonovine 0.2 Mg/Ml Ampul) 0.2 mg IM X1 PRN PRN Reason: Uterine Atony Naloxone HCl (Naloxone 0.4 Mg/Ml Syringe) 0.02 mg IV Q1M PRN PRN Reason: RR <10 and pt unresponsive Ondansetron HCl (Ondansetron 4 Mg/2 Ml Vial) 4 mg IV Q4H PRN PRN PRN Reason: Nausea Oxycodone HCl (Oxycodone 5 Mg Tablet) 5 - 10 mg PO Q4H PRN PRN PRN Reason: Pain Score 4-10 Prochlorperazine Edisylate (Prochlorperazine 10 Mg/2 Ml Vial) 10 mg IV Q6H PRN PRN PRN Reason: NAUSEA Senna/Docusate Sodium (Senna/Docusate Sodium 1 Tablet) 0 tablet PO DAILY [facility] Last Admin: 12/21/20 08:40 Dose: 1 tablet Documented by: Simethicone (Simethicone 80 Mg Tablet) 80 mg PO PCHS PRN PRN Reason: Indigestion/stomach pain Sodium Chloride (0.9% Saline Lock 10 Ml Syringe) 5 - 15 ml IV UD PRN PRN Reason: SALINE FLUSH Last Admin: 12/21/20 03:02 Dose: 10 ml Documented by: Medical Necessity - Tobacco Use Smoking Status: Never smoker Assessment/Plan All Active Problems 35 weeks gestation of (Acute) Twin (Acute) Elevated blood pressure reading (Acute) Swelling of lower extremity during (Acute) Postoperative day #1 status post section for twins. Patient is doing well. Neonates are doing well they are in the special care nursery for glucose regulation. Patient will continue to pump breastmilk. Otherwise routine care. Hemoglobin is appropriate for postoperative blood loss. She has chronic antepartum anemia.
[2020-12-21] MEDS: Ferrous Sulfate 325 MG Tablet PO ×2 (12:28→18:14)
[2020-12-21 13:30] VITALS: BP 141/63; PULSE 114; RESP 18; TEMP 36.2
[2020-12-21] MEDS: oxyCODONE 5 MG Tablet PO ×2 (18:25→22:25)
[2020-12-21] MEDS: Enoxaparin 40 MG/0.4 ML Syringe SC (22:02)
[2020-12-21 22:23] VITALS: BP 128/79; PULSE 109; RESP 18; TEMP 36.6; O2SAT 95
[2020-12-22] MEDS: Acetaminophen 500 MG Tablet 1000 MG PO ×4 (00:53→18:31)
[2020-12-22] MEDS: Ibuprofen 600 MG Tablet PO ×4 (03:25→20:25)
[2020-12-22 03:26] VITALS: BP 107/64; PULSE 105; RESP 16; TEMP 36.8; O2SAT 95
--- NOTE | 2020-12-22 04:56 | NURSING ---
Pt. education packet printed, including information about post care, , and interaction with infant's in NICU setting. Given to pt. CPR ipad also taken into room. Pt. denies questions at this time.
[2020-12-22] MEDS: Levothyroxine 100 MCG Tablet PO (06:33)
[2020-12-22] MEDS: oxyCODONE 5 MG Tablet PO ×3 (06:34→18:30)
[2020-12-22 06:35] VITALS: BP 118/74; PULSE 92; RESP 18; TEMP 36.9; O2SAT 95
[2020-12-22] MEDS: Senna/Docusate Sodium 1 Tablet PO (09:37)
--- NOTE | 2020-12-22 11:26 | PCM.PN.OB ---
Subjective: pain well controlled, average lochia. + flatus, no BM. vlad. regular diet - Physical Exam Vitals/I&O's: Vital Signs Temp Pulse Resp BP Pulse Ox 98.5 F 92 18 118/74 95 12/22/20 06:35 12/22/20 06:35 12/22/20 06:35 12/22/20 06:35 12/22/20 06:35 Oxygen Delivery Method Room Air Weight: 106.1 kg Body Mass Index (BMI) 38.9 Intake and Output for Last 24 Hours 12/20/20 12/21/20 12/22/20 23:59 23:59 23:59 Intake Total 3070.98 / 3070.98 0 / 0 Output Total 800 / 800 1800 / 1800 Balance 2270.98 / 2270.98 -1800 / -1800 General: Alert, Cooperative, No apparent distress Abdomen: Soft, Distended - mildly, softly, Tender - appropriately Extremities: Edema - 1+ Skin: Incision - bandage is clean, dry and intact Current Medications Acetaminophen (Acetaminophen 500 Mg Tablet) 1,000 mg PO Q6 [facility] Last Admin: 12/22/20 06:33 Dose: 1,000 mg Documented by: Bisacodyl (Bisacodyl 10 Mg Suppository) 10 mg RC UD PRN PRN Reason: If no BM Dextrose (Dextrose 50%-Water 25 Gm/50 Ml Disp.Syrin) 0 gm IV X1 PRN; Protocol PRN Reason: Hypoglycemia Enoxaparin Sodium (Enoxaparin 40 Mg/0.4 Ml Syringe) 40 mg SC 2000 [facility] Last Admin: 12/21/20 22:02 Dose: 40 mg Documented by: Ferrous Sulfate (Ferrous Sulfate 325 Mg Tablet) 325 mg PO 1200,1700 [facility] Last Admin: 12/21/20 18:14 Dose: 325 mg Documented by: Glucagon (Glucagon 1 Mg/Ml Syringe) 1 mg IM .X1 PRN PRN Reason: Hypoglycemia Hydrocortisone (Hydrocortisone 2.5% Crm) 1 applic TOPICAL TID PRN PRN; Protocol PRN Reason: Discomfort Ibuprofen (Ibuprofen 600 Mg Tablet) 600 mg PO Q6H [facility] Last Admin: 12/22/20 09:37 Dose: 600 mg Documented by: Levothyroxine Sodium (Levothyroxine 100 Mcg Tablet) 100 mcg PO DAILY@0600 [facility] Last Admin: 12/22/20 06:33 Dose: 100 mcg Documented by: Methylergonovine Maleate (Methylergonovine 0.2 Mg/Ml Ampul) 0.2 mg IM X1 PRN PRN Reason: Uterine Atony Naloxone HCl (Naloxone 0.4 Mg/Ml Syringe) 0.02 mg IV Q1M PRN PRN Reason: RR <10 and pt unresponsive Ondansetron HCl (Ondansetron 4 Mg/2 Ml Vial) 4 mg IV Q4H PRN PRN PRN Reason: Nausea Oxycodone HCl (Oxycodone 5 Mg Tablet) 5 - 10 mg PO Q4H PRN PRN PRN Reason: Pain Score 4-10 Last Admin: 12/22/20 10:56 Dose: 5 mg Documented by: Prochlorperazine Edisylate (Prochlorperazine 10 Mg/2 Ml Vial) 10 mg IV Q6H PRN PRN PRN Reason: NAUSEA Senna/Docusate Sodium (Senna/Docusate Sodium 1 Tablet) 0 tablet PO DAILY [facility] Last Admin: 12/22/20 09:37 Dose: 1 tablet Documented by: Simethicone (Simethicone 80 Mg Tablet) 80 mg PO PCHS PRN PRN Reason: Indigestion/stomach pain Sodium Chloride (0.9% Saline Lock 10 Ml Syringe) 5 - 15 ml IV UD PRN PRN Reason: SALINE FLUSH Last Admin: 12/21/20 03:02 Dose: 10 ml Documented by: Medical Necessity - Tobacco Use Smoking Status: Never smoker Assessment/Plan All Active Problems 35 weeks gestation of (Acute) Twin (Acute) Elevated blood pressure reading (Acute) Swelling of lower extremity during (Acute) POD#2 doing well routine postop care d/c tomorrow infants in [facility] and doing well
[2020-12-22] MEDS: Ferrous Sulfate 325 MG Tablet PO ×2 (11:50→18:31)
[2020-12-22 14:19] VITALS: BP 118/68; PULSE 107; RESP 16; TEMP 36.2; O2SAT 97
[2020-12-22] MEDS: Enoxaparin 40 MG/0.4 ML Syringe SC (20:25)
[2020-12-22 20:32] VITALS: BP 132/86; PULSE 96; RESP 16; TEMP 36.3; O2SAT 99
[2020-12-23] MEDS: oxyCODONE 5 MG Tablet PO (01:09)
[2020-12-23] MEDS: Acetaminophen 500 MG Tablet 1000 MG PO ×2 (01:09→06:37)
[2020-12-23 03:26] VITALS: BP 112/66; PULSE 98; RESP 18; TEMP 36.6
[2020-12-23] MEDS: Ibuprofen 600 MG Tablet PO ×2 (03:26→09:49)
[2020-12-23] MEDS: Levothyroxine 100 MCG Tablet PO (06:37)
--- NOTE | 2020-12-23 08:01 | PN.OBGYN_ITS ---
Subjective: Doing well. Pain controlled. Passing gas and voiding without difficulty. Ambulating without difficulty. Lochia normal. She is pumping and nursing without breast complaints. - Physical Exam Vitals/I&O's: Vital Signs Temp Pulse Resp BP Pulse Ox 97.9 F 98 18 112/66 99 12/23/20 03:26 12/23/20 03:26 12/23/20 03:26 12/23/20 03:26 12/22/20 20:32 Oxygen Delivery Method Room Air Weight: 233 lb 14.567 oz Body Mass Index (BMI) 38.9 Intake and Output for Last 24 Hours 12/21/20 12/22/20 12/23/20 23:59 23:59 23:59 Intake Total 0 / 0 Output Total 1800 / 1800 Balance -1800 / -1800 General: Alert, No apparent distress HEENT: Atraumatic Abdomen: Soft, Non-Distended, - - FF@U-1, ATTP Extremities: No Calf Tenderness, Edema Skin: No rashes Neurological: Neuro grossly intact Psych/Mental Status: Normal Affect, Appropriate Current Medications Acetaminophen (Acetaminophen 500 Mg Tablet) 1,000 mg PO Q6 [facility] Last Admin: 12/23/20 06:37 Dose: 1,000 mg Documented by: Bisacodyl (Bisacodyl 10 Mg Suppository) 10 mg RC UD PRN PRN Reason: If no BM Dextrose (Dextrose 50%-Water 25 Gm/50 Ml Disp.Syrin) 0 gm IV X1 PRN; Protocol PRN Reason: Hypoglycemia Enoxaparin Sodium (Enoxaparin 40 Mg/0.4 Ml Syringe) 40 mg SC 2000 [facility] Last Admin: 12/22/20 20:25 Dose: 40 mg Documented by: Ferrous Sulfate (Ferrous Sulfate 325 Mg Tablet) 325 mg PO 1200,1700 [facility] Last Admin: 12/22/20 18:31 Dose: 325 mg Documented by: Glucagon (Glucagon 1 Mg/Ml Syringe) 1 mg IM .X1 PRN PRN Reason: Hypoglycemia Hydrocortisone (Hydrocortisone 2.5% Crm) 1 applic TOPICAL TID PRN PRN; Protocol PRN Reason: Discomfort Ibuprofen (Ibuprofen 600 Mg Tablet) 600 mg PO Q6H [facility] Last Admin: 12/23/20 03:26 Dose: 600 mg Documented by: Levothyroxine Sodium (Levothyroxine 100 Mcg Tablet) 100 mcg PO DAILY@0600 [facility] Last Admin: 12/23/20 06:37 Dose: 100 mcg Documented by: Methylergonovine Maleate (Methylergonovine 0.2 Mg/Ml Ampul) 0.2 mg IM X1 PRN PRN Reason: Uterine Atony Naloxone HCl (Naloxone 0.4 Mg/Ml Syringe) 0.02 mg IV Q1M PRN PRN Reason: RR <10 and pt unresponsive Ondansetron HCl (Ondansetron 4 Mg/2 Ml Vial) 4 mg IV Q4H PRN PRN PRN Reason: Nausea Oxycodone HCl (Oxycodone 5 Mg Tablet) 5 - 10 mg PO Q4H PRN PRN PRN Reason: Pain Score 4-10 Last Admin: 12/23/20 01:09 Dose: 5 mg Documented by: Prochlorperazine Edisylate (Prochlorperazine 10 Mg/2 Ml Vial) 10 mg IV Q6H PRN PRN PRN Reason: NAUSEA Senna/Docusate Sodium (Senna/Docusate Sodium 1 Tablet) 0 tablet PO DAILY [facility] Last Admin: 12/22/20 09:37 Dose: 1 tablet Documented by: Simethicone (Simethicone 80 Mg Tablet) 80 mg PO [facility] PRN PRN Reason: Indigestion/stomach pain Sodium Chloride (0.9% Saline Lock 10 Ml Syringe) 5 - 15 ml IV UD PRN PRN Reason: SALINE FLUSH Last Admin: 12/21/20 03:02 Dose: 10 ml Documented by: Medical Necessity - Tobacco Use Smoking Status: Never smoker Assessment/Plan All Active Problems 35 weeks gestation of (Acute) Twin (Acute) Elevated blood pressure reading (Acute) Swelling of lower extremity during (Acute) Is postoperative day 3 from a . She is doing well and meeting all milestones for discharge. Discharge instructions reviewed and questions answered.
--- NOTE | 2020-12-23 08:06 | DCINST_ITS ---
Discharge Diet: No Restrictions Discharge Activity: May Not Drive, May Shower May resume sexual activity in: 6 weeks Ice area for (Minutes): 15 Weight Bearing Status: Weight bearing as tolerated Lifting Restrictions: Nothing heavier than baby Call your doctor if your incision/area has: Sudden Increased Bleeding, Increased Pain/ Swelling, Increased Redness, Foul Smelling Discharge, Swelling at the incision site Call your doctor if you observe: Fever of 101 or Higher, Change in Color, Inability to urinate, Inability to have a bowel movement, Using more than one pad per hour, Shortness of breath, Dizziness, Fainting spells, Swelling in the ankles, Chest pain, Increased palpitations (irregular heartbeat), Calf discomfort, Uncontrolled pain Suture Line Care: Avoid Pulling/Pushing, Avoid Pinching/Bending Remove Dressing in (days):: 2 Cleanse incision/area with: Soap & Water Instructions: After a , Common Questions About , Your Premature Infant in the NICU, Interacting with Your Premature Baby in the NICU Additional Instructions: If you experience any of the following, contact your healthcare provider. * Bleeding that soaks a pad every hour for 2 hours * Fever 100.4 or higher * Unrelieved incision or abdominal pain * Swelling, redness, discharge or bleeding from your incision or episiotomy site * Your incision begins to separate * Problems urinating (including inability to urinate or burning while urinating). * Visual changes * Severe headache * Flu-like symptoms * Pain or redness in one of both of your breasts * Pain, warmth, tenderness or swelling in your legs, especially the calf area * Frequent nausea and vomiting * Symptoms of depression or anxiety If you experience any of the following, call 911 or go to the nearest Emergency Room. * Chest pain * Problems breathing * Seizure activity * Partial or complete paralysis of a body part, slurred speech, weakness or drooping of the face, or a sudden inability to walk or hold your balance Allergies/Adverse Reactions: Allergies No Known Allergies Allergy (Verified 12/20/20 05:25) Medications to take at Discharge Ergocalciferol [Vitamin D] 50,000 unit PO Q7D 12/12/20 Levothyroxine Sodium [Synthroid] 100 mcg PO DAILY 12/12/20 Vits [Prenatabs FA] 1 tablet PO DAILY 04/08/21 Docusate Sodium [Colace] 100 mg PO BID #30 capsule 12/23/20 Ibuprofen [Motrin] 800 mg PO TID PRN PRN #30 tablet 12/23/20 Oxycodone HCl/Acetaminophen [Percocet 5-325 mg Tablet] 1 each PO Q6H PRN PRN 7 Days #10 tablet 12/23/20 The following prescriptions were given: Docusate Sodium [Colace] 100 mg PO BID #30 capsule Transmission Status: Pending to [facility] Ibuprofen [Motrin] 800 mg PO TID PRN PRN #30 tablet PRN Reason: Pain Score 6-10 Transmission Status: Pending to [facility] Oxycodone HCl/Acetaminophen [Percocet 5-325 mg Tablet] 1 each PO Q6H PRN PRN 7 Days #10 tablet PRN Reason: Pain Score 6-10 Transmission Status: Sent to [facility] Follow-Up: Call to make an appointment with your doctor for an incision check in 1-2 weeks. You will also need a 6 week post- follow up appointment. Test results from this visit will be discussed in further detail at your follow- up appointment, if applicable. Please Follow Up With: Nenita Pinto MD When: 1-2 weeks for incision check. 6 weeks for visit Primary Care Physician: Veronique Mckinney DO [Primary Care Provider] -
[2020-12-23 08:15] VITALS: BP 117/74; PULSE 90; RESP 16; TEMP 35.9; O2SAT 96
[2020-12-23] MEDS: Senna/Docusate Sodium 1 Tablet PO (09:50)
--- NOTE | 2020-12-25 12:46 | DS.PCM_ITS ---
Discharge Date and Diagnosis Date of Admission: 12/20/20 Date of Discharge: 12/23/20 Hospital Course and Treatment Operations: - - section Summary of Care Provided: The patient is a 30 year old F presented for a scheduled section for twins and low lying placenta per [facility]. See op report for details. Discharged to home in good condition on POD#3. - Physical Exam Vitals/I&O's: Vital Signs Temp Pulse Resp BP Pulse Ox 96.6 F L 90 16 117/74 96 12/23/20 08:15 12/23/20 08:15 12/23/20 08:15 12/23/20 08:15 12/23/20 08:15 Oxygen Delivery Method Room Air Weight: 233 lb 14.567 oz Body Mass Index (BMI) 38.9 Discharge Diet: No Restrictions Discharge Activity: May Not Drive, May Shower May resume sexual activity in: 6 weeks Ice area for (Minutes): 15 Weight Bearing Status: Weight bearing as tolerated Call your doctor if your incision/area has: Sudden Increased Bleeding, Increased Pain/ Swelling, Increased Redness, Foul Smelling Discharge, Swelling at the incision site Call your doctor if you observe: Fever of 101 or Higher, Change in Color, Inability to urinate, Inability to have a bowel movement, Using more than one pad per hour, Shortness of breath, Dizziness, Fainting spells, Swelling in the ankles, Chest pain, Increased palpitations (irregular heartbeat), Calf discomfort, Uncontrolled pain Suture Line Care: Avoid Pulling/Pushing, Avoid Pinching/Bending Remove Dressing in (days):: 2 Cleanse incision/area with: Soap & Water Home Medications: Medications to take at Discharge Ergocalciferol [Vitamin D] 50,000 unit PO Q7D 12/12/20 Levothyroxine Sodium [Synthroid] 100 mcg PO DAILY 12/12/20 Vits [Prenatabs FA] 1 tablet PO DAILY 12/12/20 Docusate Sodium [Colace] 100 mg PO BID #30 capsule 12/23/20 Ibuprofen [Motrin] 800 mg PO TID PRN PRN #30 tablet 12/23/20 Oxycodone HCl/Acetaminophen [Percocet 5-325 mg Tablet] 1 each PO Q6H PRN PRN 7 Days #10 tablet 12/23/20 Following Prescriptions Were Given to Patient: Docusate Sodium [Colace] 100 mg PO BID #30 capsule Transmission Status: Received by [facility] Ibuprofen [Motrin] 800 mg PO TID PRN PRN #30 tablet PRN Reason: Pain Score 6-10 Transmission Status: Received by [facility] Oxycodone HCl/Acetaminophen [Percocet 5-325 mg Tablet] 1 each PO Q6H PRN PRN 7 Days #10 tablet PRN Reason: Pain Score 6-10 Transmission Status: Received by [facility] Primary Care Physician: Veronique Mckinney DO [Primary Care Provider] - Please Follow Up With: Nenita Pinto MD When: 1-2 weeks for incision check. 6 weeks for visit Patient Instructions: After a , Common Questions About , Your Premature Infant in the NICU, Interacting with Your Premature Baby in the NICU Medical Necessity - Tobacco Use Smoking Status: Never smoker Meaningful Use Info Meaningful Use Diagnoses (Choose all that apply): None applicable
== END 2020-12-23 12:15 | disposition home or self-care (01) | DRG 787 ==
PROVIDERS: Admitting Provider Obstetrics & Gynecology; PCP Internal Medicine; Referring Provider Obstetrics & Gynecology; Visit Provider Obstetrics & Gynecology
PROC: 10D00Z1 Extraction of Products of Conception, Low, Open Approach (ICD-10-PCS; CPT 59514; principal; 2020-12-20 07:15)
DX: O60.14X1 Preterm labor third trimester with preterm delivery third trimester, fetus 1 (principal); O44.43 Low lying placenta NOS or without hemorrhage, third trimester; O60.14X2 Preterm labor third trimester with preterm delivery third trimester, fetus 2; O24.420 Gestational diabetes mellitus in childbirth, diet controlled; O30.043 Twin pregnancy, dichorionic/diamniotic, third trimester; Z3A.36 36 weeks gestation of pregnancy; Z37.2 Twins, both liveborn
CPT/HCPCS: 82962; 85025; 85027; 86850; 86900; 86901; 99218; J7120; A4216; G0378; J2405